=== PATIENT | female | born 1995 | race Caucasian/White ===

== ENCOUNTER 2019-08-21 23:26 | Emergency (ER) | payer SELFPAY ==
[~2019-08-21] VITALS: Ht 162.6 cm; Wt 60.8 kg
[2019-08-21 23:41] VITALS: Ht 162.6 cm; Wt 60.8 kg
[2019-08-22 02:00] VITALS: BP 122/84
== END 2019-08-22 00:59 | disposition home or self-care (01) ==
LOC: ED 23:26
DX: S61.215A Laceration without foreign body of left ring finger without damage to nail, initial encounter (principal); J45.909 Unspecified asthma, uncomplicated; W26.0XXA Contact with knife, initial encounter; Y93.89 Activity, other specified; Y92.89 Other specified places as the place of occurrence of the external cause; Y99.8 Other external cause status
CPT/HCPCS: 90715

== ENCOUNTER 2019-08-28 20:37 | Emergency (ER) | payer SELFPAY ==
[~2019-08-28] VITALS: Ht 162.6 cm; Wt 58.6 kg
[2019-08-28 20:55] VITALS: BP 110/73; Ht 162.6 cm; Wt 58.6 kg
== END 2019-08-28 22:01 | disposition home or self-care (01) ==
LOC: ED 20:37
DX: S61.215D Laceration without foreign body of left ring finger without damage to nail, subsequent encounter (principal); J45.909 Unspecified asthma, uncomplicated; X58.XXXD Exposure to other specified factors, subsequent encounter